=== PATIENT | female | born 1945 | race Caucasian/White ===

== ENCOUNTER → 2020-05-02 09:30 | Outpatient (BNVA) | payer MEDICARE, SELFPAY | PROVIDERS: Family Provider Family Medicine; PCP Family Medicine; Visit Provider Orthopaedic Surgery | DX: M25.551 Pain in right hip (principal); Z96.641 Presence of right artificial hip joint | CPT/HCPCS: 73502 ==

== ENCOUNTER 2020-06-12 09:17 | Outpatient (CLI) | payer MEDICARE, SELFPAY ==
--- NOTE | 2020-06-12 09:23 | MM_ITS ---
WS: [id number] BILATERAL DIGITAL SCREENING MAMMOGRAPHY WITH CAD CLINICAL INFORMATION: SCREENING HISTORY: Screening mammogram. No current complaints. COMPARISON: TECHNIQUE: Bilateral CC and MLO views. FINDINGS: The breasts are composed of heterogeneous fibroglandular density tissue, which can limit the detectio n of small underlying mass lesions. No suspicious mass, asymmetry, calcifications, or architectural d istortion. No evidence of malignancy. A few punctate calcifications. MM/[id number] IMPRESSION: BI-RADS: 2-Benign FOLLOW UP: 1 Year Follow-up Recommend return to annual screening mammography.
== END 2020-06-12 09:18 | disposition home or self-care (01) ==
LOC: RADSHAW 09:21
PROVIDERS: PCP Family Medicine; Visit Provider Family Medicine
DX: Z12.31 Encounter for screening mammogram for malignant neoplasm of breast (principal)
CPT/HCPCS: 77067

== ENCOUNTER → 2020-08-23 15:27 | Outpatient (BNVA) | payer MEDICARE, SELFPAY | PROVIDERS: PCP Family Medicine; Visit Provider Specialist | DX: G40.109 Localization-related (focal) (partial) symptomatic epilepsy and epileptic syndromes with simple partial seizures, not intractable, without status epilepticus (principal); D32.0 Benign neoplasm of cerebral meninges | CPT/HCPCS: 99213 ==

== ENCOUNTER → 2020-12-04 11:36 | Outpatient (BNVA) | payer MEDICARE, SELFPAY | PROVIDERS: PCP Family Medicine; Visit Provider Surgery | DX: Z01.812 Encounter for preprocedural laboratory examination (principal); Z20.822 Contact with and (suspected) exposure to COVID-19 | CPT/HCPCS: 87635 ==

== ENCOUNTER 2021-06-07 08:45 | Outpatient (CLI) | payer MEDICARE, SELFPAY ==
--- NOTE | 2021-06-07 09:30 | MR_ITS ---
WS: [id number] MRI HEAD WITHOUT CONTRAST TECHNIQUE: Sagittal T1, T2 axial, T2 axial FLAIR, axial and coronal T1 images, axial susceptibility w eighted imaging, axial diffusion weighted images, and coronal T2 images were obtained. CLINICAL INFORMATION: BENIGN NEOPLASM OF MENINGES UNSPEC COMPARISON: MRI 7 16,018 and 6 15,017 FINDINGS: No evidence of restricted diffusion to suggest acute ischemia. Ventricular system and basal cisterns are patent. Prior postoperative changes left parietal craniotomy with resection cavity in the parasag ittal left parietal lobe. Associated encephalomalacia and gliosis. No evidence of increasing edema or mass effect. No evidence of recurrence or progressive disease. Small amount of hemosiderin in the re section cavity unchanged. Normal optic chiasm and pituitary infundibulum. Temporal lobes and hippocampal formations are normal in appearance. Normal cavernous sinuses and Meckel's cave. MR/MR head wo con* [id number] IMPRESSION: 1. Stable postoperative changes left parietal craniotomy with resection cavity . 2. Stable surrounding encephalomalacia and gliosis about the resection cavity. No evidence of new or progressed disease. 3. Minimal small vessel changes with mild parenchymal volume loss. 4. No other significant changes compared to previous.
== END 2021-06-07 08:46 | disposition home or self-care (01) ==
LOC: RADSHAW 08:46
PROVIDERS: PCP Family Medicine; Visit Provider Family Medicine
DX: D32.9 Benign neoplasm of meninges, unspecified (principal); G93.89 Other specified disorders of brain
CPT/HCPCS: 70551

== ENCOUNTER → 2021-11-12 09:17 | Outpatient (BNVA) | payer MEDICARE, SELFPAY | PROVIDERS: PCP Family Medicine; Visit Provider Specialist | DX: G40.109 Localization-related (focal) (partial) symptomatic epilepsy and epileptic syndromes with simple partial seizures, not intractable, without status epilepticus (principal) | CPT/HCPCS: 99213 ==

== ENCOUNTER 2022-01-04 09:28 | Outpatient (CLI) | payer MEDICARE, SELFPAY ==
--- NOTE | 2022-01-04 09:49 | MM_ITS ---
WS: [id number] BILATERAL SCREENING TOMOSYNTHESIS DIGITAL MAMMOGRAM WITH CAD HISTORY: SCREENING COMPARISON: 06/12/2020 and 03/16/2018 Bilateral CC and MLO views submitted. Computer aided detection analyzed. Breast composition: The breasts are heterogeneously dense, which may obscure small masses. No suspici ous masses, microcalcifications or architectural distortion. MM/[place] [id number] IMPRESSION: BI-RADS: 1-Negative FOLLOW UP: 1 Year Follow-up
== END 2022-01-04 09:29 | disposition home or self-care (01) ==
LOC: RAD 09:29
PROVIDERS: PCP Family Medicine; Visit Provider Family Medicine
DX: Z12.11 Encounter for screening for malignant neoplasm of colon (principal)
CPT/HCPCS: 77063; 77067

== ENCOUNTER 2022-01-04 09:29 | Outpatient (CLI) | payer MEDICARE, SELFPAY ==
--- NOTE | 2022-01-04 09:55 | XR_ITS ---
WS: [id number] SCREENING DEXA SCAN [facility] CLINICAL INFORMATION: AGE-RELATED OSTEOPOROSIS WITHOUT CURRENT PATHOLOGICAL FRACTU COMPARISON: 2019 FINDINGS: The L1-L4 bone mineral density measures 1.020 g/cm2. This corresponds to a T score score of -1.3 and Z score of 0.4. Left femoral neck bone mineral density measures 0.793 (g/cm2). This corresponds to a T score of -1.7 (no units) and Z score of 0.1 (no units). XR/XR DEXA axial skeleton* [id number] IMPRESSION: Osteopenia lumbar spine. Osteopenia LEFT femoral neck. Patient's FRAX calculated 10 year probability for major osteoporotic fracture i s 15.3 % and osteoporotic hip fracture is 4.5%.
== END 2022-01-04 09:30 | disposition home or self-care (01) ==
LOC: RAD 09:29
PROVIDERS: PCP Family Medicine; Visit Provider Family Medicine
DX: M81.0 Age-related osteoporosis without current pathological fracture (principal)
CPT/HCPCS: 77080

== ENCOUNTER → 2022-05-15 08:39 | Outpatient (BNVA) | payer MEDICARE, SELFPAY | PROVIDERS: PCP Family Medicine; Visit Provider Specialist | DX: G40.109 Localization-related (focal) (partial) symptomatic epilepsy and epileptic syndromes with simple partial seizures, not intractable, without status epilepticus (principal); D32.0 Benign neoplasm of cerebral meninges; M79.7 Fibromyalgia; M46.1 Sacroiliitis, not elsewhere classified; Z98.890 Other specified postprocedural states | CPT/HCPCS: 20552; 64450; 99214; J1030; J3490 ==

== ENCOUNTER 2023-01-10 08:46 | Outpatient (CLI) | payer MEDICARE, SELFPAY ==
--- NOTE | 2023-01-10 08:57 | MM_ITS ---
WS: [id number] Bilateral screening 3D tomosynthesis digital mammogram, 01/10/2023 Clinical Data: SCREENING Comparison: 01/04/2022, 06/12/2020, 03/16/2018, 02/13/2017, 12/19/2015, 12/06/2014, 09/15/2013, 06/21/2012, 1 , 05/25/2010, 08/10/2007 Findings: The breast parenchymal pattern shows heterogeneous density. No spiculated masses or clustered calcifi cations are seen. There are no secondary signs of carcinoma. There are mole markers on both breasts. MM/[place] [id number] Impression: 1. Negative bilateral mammogram unchanged. 2. Recommend annual screening mammograms. BIRADS: 1-Negative FOLLOW UP: 1 Year Follow-up The CAD checker cashier was used.
== END 2023-01-10 08:47 | disposition home or self-care (01) ==
PROVIDERS: PCP Family Medicine; Visit Provider Family Medicine
DX: Z12.31 Encounter for screening mammogram for malignant neoplasm of breast (principal)
CPT/HCPCS: 77063; 77067

== ENCOUNTER → 2023-05-14 08:49 | Outpatient (BNVA) | payer MEDICARE, SELFPAY | PROVIDERS: PCP Family Medicine; Visit Provider Specialist | DX: G40.109 Localization-related (focal) (partial) symptomatic epilepsy and epileptic syndromes with simple partial seizures, not intractable, without status epilepticus (principal) | CPT/HCPCS: 99213 ==

== ENCOUNTER 2023-06-17 17:04 | Emergency (ER) | payer MEDICARE, SELFPAY ==
[2023-06-17 17:10] VITALS: BP 178/101; PULSE 92; RESP 17; TEMP 36.7; O2SAT 95; BMI 26.2
[2023-06-17 19:00] VITALS: PULSE 87; RESP 16; O2SAT 98
[2023-06-17 19:02] LABS: Basophils # 0.1 10^3/uL (0.0-0.1); Basophils % 0.7 %; Eosinophils # 0.1 10^3/uL (0.0-0.8); Eosinophils % 0.7 %; Hematocrit 41.7 % (36-47); Lymphocytes # 2.5 10^3/uL (0.8-4.8); Lymphocytes % 35.1 %; Mean Corpuscular HGB Conc 33.6 g/dL (30-55); Mean Corpuscular Hemoglobin 32.3 pg (27-33); Mean Corpuscular Volume 96.3 fl (85-98); Mean Platelet Volume 11.5 fL (7.4-10.4); Monocytes # 0.5 10^3/uL (0.2-0.9); Monocytes % 6.5 %; Neutrophils # 3.99 10^3/uL (1.8-7.7); Neutrophils % 56.6 %; Nucleated Red Blood Cells % 0 %; Platelet Count 252 10^3/cmm (157-399); Red Blood Count 4.33 10^6/uL (3.85-5.65); Red Cell Distribution Width 12.9 % (12.1-15.1); White Blood Count 7.06 10^3/uL (3.29-11.43)
--- NOTE | 2023-06-17 19:13 | W.ED.EXTPRO ---
HPI - Extremity Problem General: Chief complaint: Extremity Problem,Nontraumatic Stated complaint: n/v, left shoulder pain Time Seen by Provider: 06/17/23 19:03 History of Present Illness: 78-year-old female comes in today for complaints of right shoulder pain and nausea and vomiting for 2 days. Patient appears nontoxic. Patient does endorse increased use of ibuprofen for her shoulder pain. Patient reports no blood in vomitus. Patient reports no fever. Patient had prior surgery with removal of her gallbladder and hysterectomy. 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 Review of patient's medications notes that she is on medicine for hypercholesterolemia, osteoporosis, depression, seasonal nasal allergies, seizure medication, anxiety, GERD, restless legs, and beta-larissa. Review of Systems General: Reports: 10 or more systems reviewed and unremarkable except in HPI and below GI: Reports: nausea and vomiting Musc: Reports: joint pain (Right shoulder) PFSH ED PFSH: Family History Daughter Cancer Father CAD (coronary artery disease) Mother Hyperlipidemia Social History Smoking and tobacco/nicotine status: never used tobacco/nicotine Physical Exam Const: COMMON NORMALS: alert HENMT: COMMON NORMALS: normocephalic HEAD & SCALP: normocephalic Neck/C-Spine: COMMON NORMALS: full ROM and no meningeal signs CERVICAL SPINE: No Cervical spine tenderness Resp: COMMON NORMALS: normal respiratory effort and clear to auscultation bilaterally AUSCULTATION: clear to auscultation bilaterally Cardio: COMMON NORMALS: regular rate and regular rhythm RATE: regular rate RHYTHM: regular rhythm GI: COMMON NORMALS: Soft to palpation and non-tender PALPATION: Yes Soft to palpation : COMMON NORMALS: Yes no CVA tenderness BLADDER/KIDNEY EXAM: Yes no CVA tenderness Back/Pelvis: COMMON NORMALS: no CVA tenderness and thoracic and lumbar spine normal to inspection Extremity: COMMON NORMALS: no pedal edema NARRATIVE EXTREMITY EXAM: Lower leg brace for dropfoot right lower extremity Neuro: SENSORIUM/ORIENTATION: Yes alert MENINGEAL SIGNS: Yes no meningeal signs Skin: COMMON NORMALS: turgor normal GENERAL SKIN EXAM: turgor normal Course Vital Signs: Vital signs: Vital Signs Temperature 98.1 F 06/17/23 17:10 Pulse Rate 87 06/17/23 19:00 Respiratory Rate 18 06/17/23 20:00 Blood Pressure 178/101 06/17/23 17:10 Pulse Oximetry 93 06/17/23 20:00 Oxygen Delivery Me thod Room Air 06/17/23 17:10 MDM - Extremity (Nontraumatic) Medical Decision Making 78-year-old female comes in today for complaints of right shoulder pain. Patient reports nausea and vomiting also for the last 2 days. Patient reports shoulder pain has been going on for almost 1 year. Patient has also been having episodes of nausea and vomiting in the past. On exam abdomen soft nontender. Vital signs are normal except for some elevated blood pressure. Heart rates regular. Differential diagnosis includEs but not limited to musculoskeletal pain, arthritis, gastritis, GERD, pancreatitis, malingering. X-ray of the shoulder shows some arthritic changes. X-ray of the abdomen had no acute findings. Laboratory values were unremarkable. I believe the patient probably has some tendinitis versus arthritis to the right shoulder which she will need to have further evaluation with transfer specialist. Patient does admit to using increased NSAIDs and has probably caused some gastritis to his stomach. I recommended avoiding ibuprofen and naproxen [id number] and doing a trial of celecoxib for her arthritis and inflammation pain. Patient reported understanding of care plan and need for follow-up or return to the ER for worsening symptoms. Case management was requested to assist with follow-up appointment Lab Data 06/17/23 18:55 06/17/23 18:55 Radiology Impressions KUB X-Ray 06/17/23 19:31 IMPRESSION: No acute findings. COMMENTS: For patients with an IVC filter, recommend assessment for a management plan for the patient's IVC filter. If there is no established management plan, recommend referral to an interventional clinician on a nonemergent basis for evaluation. Laboratory Results WBC 7.06 10^3/uL (3.29-11.43) 06/17/23 18:55 RBC 4.33 10^6/uL (3.85-5.65) 06/17/23 18:55 Hgb 14.00 g/dL (11.27-16.99) 06/17/23 18:55 Hct 41.7 % (36-47) 06/17/23 18:55 MCV 96.3 fl (85-98) 06/17/23 18:55 MCH 32.3 pg (27-33) 06/17/23 18:55 MCHC 33.6 g/dL (30-55) 06/17/23 18:55 RDW 12.9 % (12.1-15.1) 06/17/23 18:55 Plt Count 252 10^3/cmm (157-399) 06/17/23 18:55 MPV 11.5 fL (7.4-10.4) H 06/17/23 18:55 Neut % (Auto) 56.6 % 06/17/23 18:55 Lymph % (Auto) 35.1 % 06/17/23 18:55 Zavala % (Auto) 6.5 % 06/17/23 18:55 Eos % (Auto) 0.7 % 06/17/23 18:55 Baso % (Auto) 0.7 % 06/17/23 18:55 Neut # (Auto) 3.99 10^3/uL (1.8-7.7) 06/17/23 18:55 Lymph # (Auto) 2.5 10^3/uL (0.8-4.8) 06/17/23 18:55 Zavala # (Auto) 0.5 10^3/uL (0.2-0.9) 06/17/23 18:55 Eos # (Auto) 0.1 10^3/uL (0.0-0.8) 06/17/23 18:55 Baso # (Auto) 0.1 10^3/uL (0.0-0.1) 06/17/23 18:55 Nucleated RBC % (auto) 0 % 06/17/23 18:55 Nucleated RBCs # 0.0 /100WBC 06/17/23 18:55 Sodium 141 mmol/L (136-145) 06/17/23 18:55 Potassium 4.1 mmol/L (3.5-5.1) 06/17/23 18:55 Chloride 100 mmol/L (98-107) 06/17/23 18:55 Carbon Dioxide 28 mmol/L (22-29) 06/17/23 18:55 Anion Gap 17.1 (5-19) 06/17/23 18:55 BUN 17 mg/dL (8-23) 06/17/23 18:55 Creatinine 0.9 mg/dL (0.5-0.9) 06/17/23 18:55 GFR Calculation Not Reportable 06/17/23 18:55 Glucose 106 mg/dL (65-115) 06/17/23 18:55 Calculated Osmolality 294 mOsm/kg (285-295) 06/17/23 18:55 Calcium 10.2 mg/dL (8.5-10.5) 06/17/23 18:55 Total Bilirubin 0.4 mg/dL (0.15-1.2) 06/17/23 18:55 AST 37 U/L (0-32) H 06/17/23 18:55 ALT 41 U/L (0-33) H 06/17/23 18:55 Alkaline Phosphatase 102 U/L (35-105) 06/17/23 18:55 Total Protein 8.1 g/dL (6.6-8.7) 06/17/23 18:55 Albumin 5.0 g/dL (3.5-5.2) 06/17/23 18:55 Globulin 3.1 g/dL (1.3-4.6) 06/17/23 18:55 Lipase 23 U/L (13-60) 06/17/23 18:55 Urine Color Yellow (Yellow) 06/16/23 19:24 Urine Appearance Cloudy (CLEAR) A 06/16/23 19:24 Urine pH 8 (5-7) H 06/16/23 19:24 Ur Specific [place] 1.015 (1.005-1.030) 06/16/23 19:24 Urine Protein Trace (Negative) 06/16/23 19:24 Urine Glucose (UA) Norm (Normal) 06/16/23 19:24 Urine Ketones 2+ (Negative) H 06/16/23 19:24 Urine Blood Neg (Negative) 06/16/23 19:24 Urine Nitrate Negative (Negative) 06/16/23 19:24 Urine Bilirubin Neg (Negative) 06/16/23 19:24 Prot Sulfosalicylic Acd Positive (Negative) 06/16/23 19:24 Urine Urobilinogen Norm mg/dL (Negative) 06/16/23 19:24 Ur Leukocyte Esterase 1+ (Negative) H 06/16/23 19:24 Urine RBC 0-4 /hpf (0-2) H 06/16/23 19:24 Urine WBC 10-15 /hpf (0-5) H 06/16/23 19:24 Ur Squamous Epith Cells 0-4 /hpf (0-5) H 06/16/23 19:24 Amorphous Sediment 1+ /hpf 06/16/23 19:24 Urine Bacteria Trace /hpf (NONE) 06/16/23 19:24 Hyaline Casts 0-4 /lpf H 06/16/23 19:24 Urine Mucus None /hpf 06/16/23 19:24 XR interpretation done by ED provider, pending radiology final review Discharge Plan Discharge Patient Disposition: Home Clinical Impression: Tendinitis of right shoulder, Gastritis due to nonsteroidal anti-inflammatory drug (NSAID) Condition: Stable Prescriptions: New prednisone 20 mg tablet 20 mg PO DAILY Qty: 5 0RF celecoxib 200 mg capsule 200 mg PO BID Qty: 20 0RF No Action propranolol 10 mg tablet 10 mg PO BID lorazepam 0.5 mg tablet 0.5 mg PO DAILY atorvastatin 20 mg tablet 20 mg PO DAILY escitalopram oxalate 5 mg tablet 5 mg PO DAILY omeprazole 20 mg capsule,delayed release(DR/EC) 20 mg PO DAILY fluticasone propionate 50 mcg/actuation spray,suspension 2 spray intranasal DAILY Rx Instructions: administer into each nostril ropinirole 0.25 mg tablet 0.5 mg PO DAILY alendronate [Fosamax] 70 mg tablet 70 mg PO .weekly oxycodone 5 mg capsule 5 mg PO Q6H PRN hydrocodone-acetaminophen 10-325 mg tablet 1 tab PO Q6H PRN lamotrigine 200 mg tablet See Rx Instructions .ROUTE .COMPLEX Qty: 90 3RF Dose Instruction: TAKE 1 TABLET TWICE A DAY Rx Instructions: TAKE 1/2 TABLET TWICE A DAY levetiracetam 1,000 mg tablet See Rx Instructions .ROUTE .COMPLEX Qty: 180 3RF Dose Instruction: TAKE 1 TABLET TWICE A DAY Rx Instructions: TAKE 1 TABLET TWICE A DAY Discharge Orders: Discharge ED (Routine); Ordered 06/17/23 Ordered By: Danie Cardona Referrals: Carla Bruno MD [Primary Care Provider] - Patient Instructions: Shoulder Pain (ED) Activity Restrictions/Additional Instructions: Home and rest. Gentle activity with the shoulder. Use ice or heat for comfort. Use acetaminophen and celecoxib for pain. Use your narcotic pain medicine for severe pain. Case management will contact you regarding follow-up appointment with orthopedics office. Return to ED for worsening symptoms such as high fever, severe chest pain, or shortness of breath. Coding Level of Care Code ED Applications Consultant for Destini Jimenez
[2023-06-17 19:21] LABS: Alanine Aminotransferase 41 U/L (0-33); Alkaline Phosphatase 102 U/L (35-105); Anion Gap 17.1 (5-19); Aspartate Amino Transferase 37 U/L (0-32); Blood Urea Nitrogen 17 mg/dL (8-23); Calcium 10.2 mg/dL (8.5-10.5); Carbon Dioxide 28 mmol/L (22-29); Chloride 100 mmol/L (98-107); Globulin 3.1 g/dL (1.3-4.6); Glucose 106 mg/dL (65-115); Lipase 23 U/L (13-60); Osmolality Calculated 294 mOsm/kg (285-295); Potassium 4.1 mmol/L (3.5-5.1); Sodium 141 mmol/L (136-145); Total Bilirubin 0.4 mg/dL (0.15-1.2); Total Protein 8.1 g/dL (6.6-8.7)
--- NOTE | 2023-06-17 19:31 | XRR_ITS ---
PROCEDURE INFORMATION: Exam: XR Abdomen Exam date and time: 06/17/2023 8:04 PM Age: 78 years old Clinical indication: Nausea and vomiting; Additional info: N/v TECHNIQUE: Imaging protocol: Radiologic exam of the abdomen. Views: Frontal supine view of the abdomen. 1 View. COMPARISON: CR XR hip RT 2-3V wo/w pel* [id number] 05/02/2020 9:38 AM FINDINGS: Gastrointestinal tract: No air-filled dilated bowel loops or evidence of bowel thickening. Intraperitoneal space: Right upper abdomen surgical clips. No supine evidence of free air. Vasculature: IVC filter. Mild arterial calcifications. Bones/joints: Mild degenerative changes along the spine. Partially visualized right hip arthroplasty. XR/XR KUB [id number] IMPRESSION: No acute findings. COMMENTS: For patients with an IVC filter, recommend assessment for a management plan for the patient's IVC filter. If there is no established management plan, recommend referral to an interventional clinician on a nonemergent basis for evaluation.
[2023-06-17] MEDS: ondansetron 2 mg/ML SDV 2 mL 4 MG IVP (19:46)
[2023-06-17 19:50] VITALS: RESP 16; O2SAT 96
[2023-06-17 19:50] LABS: Bilirubin Urine Neg (Negative); Blood Urine Neg (Negative); Glucose Urine UA Norm (Normal); Ketones Urine 2+ (Negative); Nitrate Urine Negative (Negative); Protein Urine Trace (Negative); Specific Gravity, Urine 1.015 (1.005-1.030); Urine Appearance Cloudy (CLEAR); Urine Color Yellow (Yellow); pH Urine 8 (5-7)
[2023-06-17] MEDS: morphine 4 mg/mL SDV 1 mL 2 MG IVP (19:50)
[2023-06-17] MEDS: sodium chloride 0.9% 250 ML IV (19:50)
[2023-06-17 19:51] LABS: Add Urine Microscopic? YES; Leukocyte Esterase Urine 1+ (Negative); Urobilinogen Urine Norm (Negative)
[2023-06-17 19:53] LABS: Sulfosalicylic Acid Urine Positive (Negative)
[2023-06-17 20:00] VITALS: RESP 18; O2SAT 93
[2023-06-17 20:00] LABS: Amorphous Sediment Urine 1+ /hpf; Bacteria Urine TRACE /hpf; Hyaline Casts Urine 0-4 /lpf; RBC Urine 0-4 /hpf (0-2); Squamous Epithelial Cell Urine 0-4 /hpf (0-5)
[2023-06-17 20:01] LABS: Add Urine Culture? No
--- NOTE | 2023-06-17 20:50 | XRR_ITS ---
PROCEDURE INFORMATION: Exam: XR Right Shoulder Exam date and time: 06/17/2023 8:58 PM Age: 78 years old Clinical indication: Pain; Shoulder; Right TECHNIQUE: Imaging protocol: Radiologic exam of the right shoulder. Views: 2 or more views. COMPARISON: CR XR chest 2V* [id number] 05/14/2019 10:50 AM FINDINGS: Bones/joints: No acute fracture or dislocation. Joint spacing and alignment are maintained. Mild acromioclavicular joint arthropathy. Degenerative changes along the spine. Soft tissues: Unremarkable. XR/XR shoulder RT min 2V* [id number] IMPRESSION: No acute findings.
[2023-06-17] MEDS: dexamethasone 10 mg/mL INJ IVP (21:16)
[2023-06-17 21:26] VITALS: BP 167/97; PULSE 98; RESP 18
--- NOTE | 2023-06-18 08:27 | DCPLANNER ---
Message and task sent to ortho 06/18/23 0814 JUAN MANUEL
== END 2023-06-17 21:28 | disposition home or self-care (01) ==
PROVIDERS: Emergency Medicine; Emergency Provider Nurse Practitioner Family; PCP Family Medicine
DX: M77.8 Other enthesopathies, not elsewhere classified (principal); K29.70 Gastritis, unspecified, without bleeding; T39.395A Adverse effect of other nonsteroidal anti-inflammatory drugs [NSAID], initial encounter; X58.XXXA Exposure to other specified factors, initial encounter
CPT/HCPCS: 36415; 73030; 74018; 80053; 81001; 83690; 85025; 96361; 96374; 96375; 99284; J1100; J2270; J2405; J7050

== ENCOUNTER → 2023-07-11 07:50 | Outpatient (BNVA) | payer MEDICARE, SELFPAY | PROVIDERS: PCP Family Medicine; Referring Provider Nurse Practitioner Family; Visit Provider Physician Assistant | DX: M75.41 Impingement syndrome of right shoulder | CPT/HCPCS: 20610; 73030; 99203; J3301 ==

== ENCOUNTER 2023-08-15 07:04 | Outpatient (CLI) | payer MEDICARE, SELFPAY ==
--- NOTE | 2023-08-15 07:15 | MR_ITS ---
WS: [id number] MRI RIGHT SHOULDER NONCONTRAST TECHNIQUE: Sagittal T2, coronal T1, T2 and proton density imaging. Axial gradient PDE imaging. CLINICAL INFORMATION: shoulder pain COMPARISON: None. FINDINGS: Moderate to advanced degenerative arthritis AC joint with fluid and edema. Synovial thickening. Mild downsloping acromion with subacromial spurring. Impingement distal supraspinatus. High-grade full-thi ckness tear supraspinatus deep to the acromion with interposed fluid signal. Tendon retraction measur ing approximately 7.5 mm. Chronic thinning of the supraspinatus with tendinopathy. Chronic thinning of the infraspinatus with tendinopathy. Normal teres minor. Marked chronic thinning of the subscapularis with tendinopathy. Chronic intrasubstance tear distal subscapularis tendon which remains intact. Biceps tendon intact within the bicipital groove. Subchondral cystic change involvin g the humeral head. Moderate to advanced degenerative arthritis glenohumeral articulation. Glenoid la dewayne appears grossly intact. Intra-articular biceps tendon appears intact. IMPRESSION: 1. Advanced degenerative arthritis AC joint. 2. Full-thickness tear supraspinatus deep to the acromion with 7.5 mm of tendon retraction. Associat ed tendinopathy supraspinatus. 3. Tendinopathy infraspinatus. 4. Chronic thinning of the subscapularis with tendinopathy and chronic appearing intrasubstance tear distally. 5. Biceps tendon appears intact within the bicipital groove. 6. Subacromial and subdeltoid fluid.
== END 2023-08-15 07:05 | disposition home or self-care (01) ==
LOC: RAD 07:05
PROVIDERS: PCP Family Medicine; Visit Provider Physician Assistant
DX: M75.41 Impingement syndrome of right shoulder (principal); M19.011 Primary osteoarthritis, right shoulder; M75.121 Complete rotator cuff tear or rupture of right shoulder, not specified as traumatic; M75.81 Other shoulder lesions, right shoulder
CPT/HCPCS: 73221

== ENCOUNTER → 2023-09-05 09:30 | Outpatient (BNVA) | payer MEDICARE, SELFPAY | PROVIDERS: PCP Family Medicine; Visit Provider Physician Assistant | DX: M75.41 Impingement syndrome of right shoulder; M75.51 Bursitis of right shoulder; M75.101 Unspecified rotator cuff tear or rupture of right shoulder, not specified as traumatic | CPT/HCPCS: 99214 ==

== ENCOUNTER 2023-10-09 08:08 | Day surgery (SDC) | payer MEDICARE, SELFPAY ==
[2023-10-09] VITALS (18 sets, daily range): BP systolic 102–183; BP diastolic 64–147; PULSE 65–88; RESP 16–25; TEMP 35.6–36.7; O2SAT 93–100; BMI 25.4
--- NOTE | 2023-10-09 09:08 | P.HP_ITS ---
Same Day Surgery H&P Indication for Procedure/HPI DATE OF PROCEDURE: October 09, 2023 CHIEF COMPLAINT/INDICATIONFOR SURGICAL PROCEDURE: Right shoulder rotator cuff tear, AC joint arthritis subacromial impingement biceps tendinitis PREOP DIAGNOSIS: Right shoulder rotator cuff tear, AC joint arthritis, subacromial impingeme PLANNED PROCEDURE: Operation Date: 10/09/23 09:55 Proposed Procedures p Right Shoulder Arthroscopy(Right) - Gennaro [place], DO s Right AC Joint Resection(Right) - Gennaro Ирина, DO s Rotator Cuff Repair - Arthroscopy possible balloon(Right) - Gennaro Ирина, DO s Right Bicep Tenotomy(Right) - Gennaro [place], DO s Right Subacromial Decompression(Right) - Gennaro Ирина, DO Medications/Allergies* Home Medications Medication Instructions Recorded Confirmed Type alendronate 70 mg tablet (Fosamax) 70 mg PO .weekly 08/23/20 10/08/23 History atorvastatin 20 mg tablet 20 mg PO DAILY 08/23/20 10/08/23 History escitalopram oxalate 5 mg tablet 5 mg PO DAILY 08/23/20 10/08/23 History (Lexapro) fluticasone propionate 50 2 spray intranasal DAILY 08/23/20 10/08/23 History mcg/actuation nasal spray,suspension lorazepam 0.5 mg tablet 0.5 mg PO DAILY 08/23/20 10/08/23 History omeprazole 20 mg capsule,delayed 20 mg PO DAILY 08/23/20 10/08/23 History release propranolol 10 mg tablet 10 mg PO BID 08/23/20 10/08/23 History ropinirole 0.25 mg tablet 0.5 mg PO DAILY 08/23/20 10/08/23 History lamotrigine 200 mg tablet 100 mg PO BID 10/08/23 10/08/23 History levetiracetam 1,000 mg tablet 1,000 mg PO BID 10/08/23 10/08/23 History Allergies/Adverse Reactions Allergy/AdvReac Type Severity Reaction Status Date / Time divalproex sodium Allergy Unknown Verified 10/08/23 10:54 [From Depakote] doxycycline Allergy Unknown Verified 10/08/23 10:54 heparin Allergy Unknown Verified 10/08/23 10:54 Pertinent History/Comorbid Conditions* Family History (Updated 08/23/20 @ 15:49 by Nona Thorne RN) CAD (coronary artery disease) Father Hyperlipidemia Mother Cancer Daughter Social History Smoking and tobacco/nicotine status: never used tobacco/nicotine Alcohol intake: never Pertinent Exam Findings alert, oriented x 3, operative site marked and procedure specific exam findings Right Shoulder -Tender to palpation over ac joint and bicep tendon -Decreased shoulder range of motion Recommendations Surgery/Procedure today Other Plans: Plan to proceed to the OR today with right shoulder diagnostic and surgical arthroscopy with AC joint resection, subacromial decompression, rotator cuff repair, possible subacromial balloon, biceps tenotomy versus tenodesis. Patient and daughter understand agree with current plan. All questions answered. They understand the ins and outs procedure risk benefits complication alternatives with surgery elects proceed all questions answered. Coding Level of Care Code Acute Code for Destini Jimenez
[2023-10-09] MEDS: acetaminophen 1,000 MG/100 ML PIGGYBACK 400 MG IV (09:13)
[2023-10-09] MEDS: sodium chloride 0.9% 1,000 ML 30 ML IV (09:14)
[2023-10-09] MEDS: ketorolac 30 mg/mL INJ IVP (09:14)
[2023-10-09] MEDS: ceFAZolin 2,000 MG in sodium chloride 0.9% (plus) 50 ML 100 MG IV (09:34)
--- NOTE | 2023-10-09 09:58 | ANES.PROC ---
Anesthesia Procedures Procedure/Date: 10/09/23 right interscalene nerve block Procedure Narrative: Patient in OR and right neck prepped with chlorhexidine. Ultrasound used to identify nerve and 22g 2 in needle used to place 30 ml 0.5% ropivicaine in 10 ml aliquots with patient awake. No complaints of parasthesia from patient and she tolerated procedure well. Nerve Block ^: Nerve Block 1: Main Anesthesia: general anesthesia Consent: from patient Nerve block location: interscalene Anesthesia monitors applied: pulse oximetry and EKG Nerve block position: semi sitting Anesthetic Used: ropivicaine 0.5% Amount of anesthesia used (mL): 30 Ultrasound used to: in supraclavicular region and visualize and ID interscalene groove Nerve Stimulator Used?: No Injection: neg aspiration of heme Patient Tolerated Procedure: well and no complications Complications: none
--- NOTE | 2023-10-09 11:55 | W.PM.BPON ---
Date of Procedure: 10/09/2023 Surgeon: Gennaro Gifford DO [employer] Supervisor(s): HAROON Mad[place] Procedure(s) performed: Right shoulder diagnostic and surgical arthroscopy with biceps tenotomy Right shoulder diagnostic and surgical arthroscopy with labral debridement Right shoulder diagnostic and surgical arthroscopy with subscapularis tendon repair Right shoulder diagnostic and surgical arthroscopy with subacromial decompression (bursectomy and acromioplasty) Right shoulder diagnostic and surgical arthroscopy with acromioclavicular joint resection Right shoulder diagnostic and surgical arthroscopy with large rotator cuff (supraspinatus tendon) repair Findings of the procedure(s): Patient was found to have a upper border subscapularis tendon tear as well as significant biceps inflammation unstable biceps anchor, as well as a large supraspinatus rotator cuff tendon repair with tendon retraction. Patient underwent procedure as planned without complications or issues this point in time she is placed in a UltraSling and will follow-up in 2 weeks. Keep nonweightbearing to the right upper extremity. Estimated blood loss: 20 mL Specimen(s) removed: None Post-operative diagnosis: Right shoulder biceps tendinitis/tearing, labral tearing, subscapularis tendon tear, subacromial impingement, AC joint arthritis, large supraspinatus rotator cuff tendon tear
--- NOTE | 2023-10-09 11:59 | PM.OP ---
Operative Report Date of procedure: October 09, 2023 Surgeon: Gennaro Gifford DO Commutator Repairer: HAROON [place]?FA was necessary for assistance in this case with arm positioning to execute the procedure, retraction assist with instrumentation and rotator cuff fixation with implants, as well as to assist with wound closure and dressing application. Procedure: Preoperative diagnosis: right shoulder rotator cuff tear, AC joint arthritis, subacromial impingement, biceps tendinitis Post-op diagnosis:? Right?shoulder?labral tear Right?shoulder?biceps tendon tear Right shoulder upper border subscapularis tendon tear Right?shoulder?rotator cuff tear Right?shoulder?AC joint arthritis Right?shoulder?subacromial bursitis/impingement Procedure done: Right?shoulder?diagnostic and surgical arthroscopy with arthroscopic rotator cuff repair(large) Right?shoulder?diagnostic and surgical arthroscopy biceps tenotomy Right?shoulder?diagnostic and surgical arthroscopy labral debridement Right?shoulder?diagnostic and surgical arthroscopy acromioclavicular joint resection Right?shoulder?diagnostic and surgical arthroscopy subacromial decompression (acromioplasty and bursectomy) Right shoulder diagnostic and surgical arthroscopy with subscapularis tendon repair Surgeon: Gennaro Gifford DO Estimated blood loss: [20]mL IV fluids: See anesthesia record Implants: Arthrex 4.75 swivel lock x 2 Arthrex scorpion and suture tape Arthrex 2 x 2.6 mm fiber tacks RC Complications: None Condition: stable Disposition: same day Brief History: Patient been seen and worked up in the outpatient setting for Right?shoulder?pain.? Pt had an MRI which showed findings below.? Patient's failed conservative treatment and has weakness.? We talked about treatment options far as nonoperative and operative intervention..? We talked about risk benefits complication alternatives surgical nonsurgical treatment options.? Understanding risk of surgery pt agrees to proceed with surgical intervention.? All questions have been answered at this time.? Patient elects proceed with surgery and consent obtained in office. IMPRESSION: 1. Advanced degenerative arthritis AC joint. 2. Full-thickness tear supraspinatus deep to the acromion with 7.5 mm of tendon retraction. Associated tendinopathy supraspinatus. 3. Tendinopathy infraspinatus. 4. Chronic thinning of the subscapularis with tendinopathy and chronic appearing intrasubstance tear distally. 5. Biceps tendon appears intact within the bicipital groove. 6. Subacromial and subdeltoid fluid. Procedure: Patient seen evaluated in the preoperative holding area.? Consent reviewed and signed with patient.? Once again reviewed patient's MRI results as well as? planned surgical intervention.? Correct extremity marked.? Patient seen evaluated by anesthesia department received regional anesthesia.? Once ready for surgery was taken back to the operative suite.? Patient then subsequently underwent anesthesia per the anesthesia department was transported onto the OR table.? Patient was then placed into a lateral decubitus position with a beanbag and was appropriately secured to the bed.? All bony prominences well-padded.? Patient then had the Right upper extremity was then prepped and draped in standard orthopedic fashion.? Patient received appropriate preoperative antibiotics.? Final timeout performed. The Right upper extremity was then held in hanging from traction utilizing sterile technique.? Next started with standard diagnostic and surgical arthroscopy with posterior portal position introduced arthroscope into the glenohumeral joint.? Visualized the glenohumeral joint I then introduced a spinal needle within the rotator cuff interval to confirm appropriate anterior portal placement.? Once this was confirmed I then made my small incision and then introduced my arthroscopic shaver into the glenohumeral joint.? After thorough debridement was clearly evident patient had a significant erythema as well as positive liftoff sign of the biceps anchor and biceps tendon tear as it was pulled within the joint.? Decision at this time was made to perform a biceps tenotomy.? Introduced a thermal wand and a biceps tenotomy was performed to completion With appropriate release.? Next I evaluated the subscapularis tendon was found to be torn at the upper border. At this point time decision was made for a subscapularis tendon repair. At this point in time I appropriately debrided the tendon and opened up the rotator cuff interval with the thermal wand utilized blunt probe to mobilize adhesions around the subscapularis tendon so that way an appropriate bite of just the tendon would be made. Next once this was performed I then placed a purple cannula. Next I then utilized arthroscopic scopic suture scorpion to pass the fiber link suture to luggage tag upper border of the subscapularis tendon. Once this was then subsequently performed I then took 1 more purchase through the tendon for appropriate fixation and then once I satisfied with my purchase I then subsequently loaded this onto a 4.75 mm Arthrex bio composite swivel lock suture anchor. This was kept under appropriate tension I then subsequently utilized a punch to appropriate depth and then loaded under appropriate tension secured my repair with the swivel lock suture anchor. This was then stressed and found to have appropriate repair the subsequently utilized arthroscopic suture cutter and all excess suture was removed. This completed patient's subscapularis tendon repair. ?Next there was significant labral tearing at biceps anchor and circumferential.? ? I then subsequently utilized a a arthroscopic shaver and thermal wand to perform a labral debridement.? This point time I then visualized the glenohumeral joint.? The glenohumeral joint was found to have grade 2 chondromalacia throughout.? Infrapatellar pouch was free of loose bodies from viewing the posterior portal.? Next a visualized the rotator cuff superiorly and there was found to be a large tear supraspinatus tendon.? I utilized a spinal needle to maranda this location.? ?This completed my work within the glenohumeral joint all fluid was suctioned free of the joint.? ?Next I reintroduced the arthroscope posteriorly.? And went to the subacromial space.? I established my lateral working portal at the site of which my spinal needle was marking of the rotator cuff tear.? Thermal wand was then introduced laterally and then I subsequently performed extensive bursectomy of the subacromial space.? Patient had a large anterior bone spur.? At this point time I proceeded with my AC joint resection thermal wand was used and track to the anterior edge of the acromion and then tracked all the way to the AC joint.? Once identified the AC joint this was very arthritic in nature.? Thermal wand was placed anteriorly to establish appropriate plane for AC joint resection.? Once appropriate margins and anterior inferior and anterior capsule was released I then introduced arthroscopic shaver and a bur and performed AC joint resection of both the acromion to cope plane at the AC joint and a distal clavicle resection was then performed totaling 1 cm in size and was confirmed.? This completed my AC joint resection and I then introduced the arthroscopic shaver laterally while continuing to view posteriorly.? I then performed an acromioplasty to complete my subacromial decompression prior to fixing the rotator cuff tear.? Next the arthroscopic shaver was then used previous spinal needle spot that is marked the small hole in the rotator cuff this was consistent with a large full-thickness tear.? This point in time I thoroughly debrided the rotator cuff footprint with a ring curette as well as shaver. Once footprint was appropriately debrided I then debrided appropriately the rotator cuff tendon assessed its quality patient had good appropriate quality and thickness to her rotator cuff tendon that would have appropriate reduction and tendon excursion. As a result plan with a Arthrex double row speed bridge technique. I subsequently utilized to x 2.6 mm rotator cuff fiber tack sutures these were subsequently placed for my medial row anchors subsequently utilized arthroscopic scorpion to pass these in sequential fashion from anterior to posterior with a total of 6 passes through the tendon. Once this was then done I then subsequently pulled 1 suture type from each anchor to my for my anterior lateral row anchor as well as my posterior lateral row anchor. Once the sutures then subsequently pulled I then subsequently debrided the lateral row of soft tissue and had appropriate visualization and subsequently loaded these on Arthrex bio composite 4.75 swivel lock peek eyelet anchor with self punching. Once I had this under appropriate tension from anterior lateral row anchor I then subsequently punched the anchor into appropriate position while maintaining appropriate tension and then subsequently secured the anchor. All excess suture was then removed had excellent fixation. Next I loaded the posterior lateral row anchor sutures and then subsequently in the same fashion use the Arthrex 4.75 bio composite peek eyelet swivel lock which all suture was then loaded held under appropriate tension impacted and secured with an appropriate tension-free repair. All excess suture was then removed. Rotator cuff repair was completely closed and had excellent tendon excursion as well as compression of the rotator cuff footprint.? Repair was found to be satisfactory?shoulder?was taken through range of motion and the repair moved as a unit with no evidence of loss of fixation. ?I then switched the arthroscope to the lateral portal to confirm this tension-free repair.? I took the?shoulder?through range of motion and the rotator cuff repair was stable and moved as a unit. ?Next I then introduced the arthroscopic shaver posteriorly to complete my subacromial decompression appropriate complaining all the way up to the lateral edge of the acromion.? This completed the surgery.? All fluid was suctioned from the?shoulder.? All instruments were removed.? The lateral incision was then closed with nylon stitches.? As well as the portal sites closed with portal nylon stitches.? Xeroform 4 x 4's ABD and tape was then applied to the Right?shoulder?and was placed into a?shoulder?abduction pillow sling for rotator cuff repair.? Patient was then awakened from anesthesia and then taken back to PACU in stable condition.? Patient tolerated procedure without any issues. Disposition: Patient taken back in stable condition recovering well.? Dressings on in place clean dry and intact.? Will be nonweightbearing to the Right upper extremity.? Follow rotator cuff repair protocol.? Patient to follow-up with me in the office in 2 weeks.? Patient will receive appropriate discharge instruction as well as pain medication postoperatively.? All questions answered.? We will contact the office for any questions or concerns.
--- NOTE | 2023-10-09 12:29 | SUR.PHASEI ---
Simple mask removed, patient states no pain, no nausea. Warm blankets on patient, states she is warming up.
--- NOTE | 2023-10-09 12:54 | SUR.PHASEI ---
Patient stated she needs to pee, placed her on a bedpan.
[2023-10-09] MEDS: meperidine 50 mg/mL INJ 12.5 MG IVP ×2 (13:03→13:42)
--- NOTE | 2023-10-09 13:11 | SUR.PHASEI ---
Administered demerol for shaking patients O2 sat started dropped. Placed her on NC
--- NOTE | 2023-10-09 13:33 | SUR.PHASEII ---
ACTIVE HEATING IN PROGRESS. ROM AND SENSATION OF RIGHT HAND.
--- NOTE | 2023-10-09 14:07 | SUR.PHASEII ---
13:42 RE-MEDICATED FOR TREMORS.
--- NOTE | 2023-10-09 14:19 | ANE.PACU2 ---
Inpatient post-anesthesia follow up: Vital signs: Temperature 98.0 F Pulse Rate 88 Respiratory Rate 18 Blood Pressure 102/84 Pulse Oximetry 95 Oxygen Delivery Me thod Room Air Oxygen Flow Rate 2 Fraction of Inspir ed Oxygen Hydration adequate: Yes Nausea and vomiting: No Pain level: 1 Mental status: Baseline Additional Comments: no apparent anesthetic complications noted.
== END 2023-10-09 15:00 | disposition home or self-care (01) ==
PROVIDERS: PCP Family Medicine; Visit Provider Student in an Organized Health Care Education/Training Program
PROC: (CPT 29805; principal; 2023-10-09 09:45)
PROC: 0RSG0ZZ Reposition Right Acromioclavicular Joint, Open Approach (ICD-10-PCS; CPT 29826; 2023-10-09 09:45)
PROC: (CPT 29827; 2023-10-09 09:45)
PROC: (CPT 24310; 2023-10-09 09:45)
DX: M75.101 Unspecified rotator cuff tear or rupture of right shoulder, not specified as traumatic (principal); S46.111A Strain of muscle, fascia and tendon of long head of biceps, right arm, initial encounter; M13.811 Other specified arthritis, right shoulder; M25.811 Other specified joint disorders, right shoulder; X58.XXXA Exposure to other specified factors, initial encounter
CPT/HCPCS: 29826; 29827; 29828; C1713 ×2; J0131; J0690; J1100; J1885; J2175; J2405; J2704; J2710; J2795; J3010; J3490; J7030

== ENCOUNTER → 2023-10-31 08:12 | Outpatient (BNVA) | payer MEDICARE, SELFPAY | PROVIDERS: PCP Family Medicine; Visit Provider Physician Assistant | DX: Z98.890 Other specified postprocedural states (principal) | CPT/HCPCS: 99024 ==

== ENCOUNTER → 2023-11-21 08:30 | Outpatient (BNVA) | payer MEDICARE, SELFPAY | PROVIDERS: PCP Family Medicine; Visit Provider Physician Assistant | DX: Z98.890 Other specified postprocedural states (principal) | CPT/HCPCS: 99024 ==

== ENCOUNTER 2023-12-02 15:10 | Outpatient (RCR) | payer MEDICARE, SELFPAY | END 2023-12-30 23:59 | disposition home or self-care (01) | LOC: SPT 15:10 | PROVIDERS: PCP Family Medicine; Visit Provider Physician Assistant | DX: Z98.890 Other specified postprocedural states (principal) | CPT/HCPCS: 97110; 97161 ==

== ENCOUNTER 2023-12-31 06:00 | Outpatient (RCR) | payer MEDICARE, SELFPAY | END 2024-01-30 23:59 | disposition home or self-care (01) | LOC: SPT 06:00 | PROVIDERS: PCP Family Medicine; Visit Provider Physician Assistant | DX: Z98.890 Other specified postprocedural states (principal) | CPT/HCPCS: 97110 ==

== ENCOUNTER → 2024-01-09 09:04 | Outpatient (BNVA) | payer MEDICARE, SELFPAY | PROVIDERS: PCP Family Medicine; Visit Provider Physician Assistant | DX: Z98.890 Other specified postprocedural states (principal) | CPT/HCPCS: 99213 ==

== ENCOUNTER 2024-01-31 06:00 | Outpatient (RCR) | payer MEDICARE, SELFPAY | END 2024-02-29 23:59 | disposition home or self-care (01) | LOC: SPT 06:00 | PROVIDERS: PCP Family Medicine; Visit Provider Physician Assistant | DX: Z98.890 Other specified postprocedural states (principal) | CPT/HCPCS: 97110 ==

== ENCOUNTER 2024-03-01 06:00 | Outpatient (RCR) | payer MEDICARE, SELFPAY | END 2024-03-31 23:59 | disposition home or self-care (01) | LOC: SPT 06:00 | PROVIDERS: PCP Family Medicine; Visit Provider Physician Assistant | DX: Z98.890 Other specified postprocedural states (principal) | CPT/HCPCS: 97110 ==

== ENCOUNTER → 2024-04-09 10:00 | Outpatient (BNVA) | payer MEDICARE, SELFPAY | PROVIDERS: PCP Family Medicine; Visit Provider Student in an Organized Health Care Education/Training Program | DX: Z98.890 Other specified postprocedural states (principal) | CPT/HCPCS: 99213 ==

== ENCOUNTER 2024-06-04 07:48 | Outpatient (CLI) | payer MEDICARE, SELFPAY ==
--- NOTE | 2024-06-04 07:53 | MM_ITS ---
WS: [id number] BILATERAL SCREENING DIGITAL TOMOSYNTHESIS MAMMOGRAM WITH CAD HISTORY: SCREENING COMPARISON: 01/10/2023, 01/04/2022 Bilateral CC and MLO views with tomosynthesis and synthetic mammography submitted. Computer aided det ection analyzed. Breast composition: There are scattered areas of fibroglandular density. No suspicious masses, microc alcifications or architectural distortion. Benign calcification RIGHT breast. MM/MM scr BI tomosynthesis [id number] IMPRESSION: BI-RADS: 2 - Benign. FOLLOW UP: 1 Year Follow-up
== END 2024-06-04 07:49 | disposition home or self-care (01) ==
LOC: RAD 07:49
PROVIDERS: PCP Family Medicine; Visit Provider Family Medicine
DX: Z12.31 Encounter for screening mammogram for malignant neoplasm of breast (principal); R92.323 Mammographic fibroglandular density, bilateral breasts
CPT/HCPCS: 77063; 77067

== ENCOUNTER → 2024-06-10 13:46 | Outpatient (BNVA) | payer MEDICARE, SELFPAY | PROVIDERS: PCP Family Medicine; Visit Provider Dermatology | DX: D48.5 Neoplasm of uncertain behavior of skin (principal); L82.1 Other seborrheic keratosis; L57.0 Actinic keratosis; D22.0 Melanocytic nevi of lip; D22.39 Melanocytic nevi of other parts of face; Z85.828 Personal history of other malignant neoplasm of skin | CPT/HCPCS: 11102; 17000; 99203 ==

== ENCOUNTER → 2024-06-24 07:58 | Outpatient (BNVA) | payer MEDICARE, SELFPAY | PROVIDERS: PCP Family Medicine; Visit Provider Dermatology | DX: C44.311 Basal cell carcinoma of skin of nose (principal) | CPT/HCPCS: 14060; 17311 ==

== ENCOUNTER 2024-10-15 13:14 | Outpatient (CLI) | payer MEDICARE, SELFPAY ==
--- NOTE | 2024-10-15 14:16 | XR_ITS ---
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 This corresponds to a T score score of -1.1 and Z score of 0.8. Left femoral neck bone mineral density measures 0.729 (g/cm2). This corresponds to a T score of -2.2 (no units) and Z score of -0.2 (no units). LEFT forearm bone mineral density measures 0.814. This corresponds to a T score of -0.7 of and Z score of 1.8. XR/XR DEXA axial skeleton* [id number] IMPRESSION: Osteopenia lumbar spine. Osteopenia LEFT femoral neck. Normal bone mineralizati on LEFT forearm.
== END 2024-10-15 13:15 | disposition home or self-care (01) ==
LOC: RAD 13:15
PROVIDERS: PCP Family Medicine; Visit Provider Family Medicine
DX: Z78.0 Asymptomatic menopausal state (principal); M85.89 Other specified disorders of bone density and structure, multiple sites
CPT/HCPCS: 77080

== ENCOUNTER → 2025-03-16 11:02 | Outpatient (BNVA) | payer MEDICARE, SELFPAY | PROVIDERS: Visit Provider Student in an Organized Health Care Education/Training Program | DX: Z98.890 Other specified postprocedural states (principal); M75.51 Bursitis of right shoulder; M19.011 Primary osteoarthritis, right shoulder | CPT/HCPCS: 73030; 99214 ==

== ENCOUNTER 2025-05-13 06:55 | Outpatient (CLI) | payer MEDICARE, SELFPAY ==
--- NOTE | 2025-05-13 07:15 | MR_ITS ---
WS: [id number] MRI BRAIN WITHOUT CONTRAST HISTORY: meningioma f/u COMPARISON: 06/07/2021, 03/16/2018 TECHNIQUE: Diffusion imaging, multiplanar T1, T2 and FLAIR imaging obtained. No evidence for acute infarct or hemorrhage. Olguin-white matter differentiation is normal. No remote or prior infarcts. Reidentified is a postoperative changes with resection cavity along the parasagittal LEFT parietal lobe. There is associated encephalomalacia with gliosis. No significant amount of associated edema or mass effect. Postoperative LEFT parietal craniotomy is again identified and unchanged. Ventricles are slightly dilated. This is on the basis of mild atrophy. No inferior displacement of cerebellar tonsils. The sella turcica and pituitary gland are unremarkable. Dural venous sinuses and [place] demonstrate no abnormality on this unenhanced studies. Paranasal sinuses: Clear. Mastoid air cells: Very small amount of fluid in the LEFT mastoid tip. Calvarium and scalp: Prior large LEFT parietal craniotomy. MR/MR head wo con* [id number] IMPRESSION: 1. No acute infarct. Diffusion imaging is normal. 2. Stable postoperative changes involving the LEFT parietal craniotomy with re section cavity. No new area of edema or mass effect. 3. Mild cerebral atrophy.
== END 2025-05-13 06:56 | disposition home or self-care (01) ==
LOC: RAD 06:56
PROVIDERS: PCP Family Medicine; Visit Provider Family Medicine
DX: D32.0 Benign neoplasm of cerebral meninges (principal); Z98.890 Other specified postprocedural states; G31.9 Degenerative disease of nervous system, unspecified
CPT/HCPCS: 70551

== ENCOUNTER 2025-06-17 09:25 | Outpatient (CLI) | payer MEDICARE, SELFPAY ==
--- NOTE | 2025-06-17 09:28 | MM_ITS ---
WS: [id number] SCREENING DIGITAL BREAST TOMOSYNTHESIS MAMMOGRAM WITH CAD HISTORY: ANNUAL SCREEN COMPARISON: 06/04/2024, 01/10/2023, 01/04/2022 Bilateral CC and MLO with tomosynthesis and synthetic mammography submitted. Computer aided detection analyzed. Breast composition: There are scattered areas of fibroglandular density. Area of asymmetry is ill-defined in the medial RIGHT breast seen on the CC projection at a middle depth. There are a few additional benign calcifications in each breast. No distortion. No well-circumscribed mass. MM/MM scr BI tomosynthesis [id number] IMPRESSION: BI-RADS: 0 - Incomplete: Need additional imaging evaluation. FOLLOW UP: Need Additional Imaging RIGHT breast: Spot compression views (CC and MLO). True ML. Ultrasound to follo w if abnormality persists. The asymmetry in the medial RIGHT breast may correspond to a mole. Recommend ma rking any moles in the medial RIGHT breast prior to imaging.
== END 2025-06-17 09:26 | disposition home or self-care (01) ==
LOC: RAD 09:26
PROVIDERS: PCP Family Medicine; Visit Provider Family Medicine
DX: Z12.31 Encounter for screening mammogram for malignant neoplasm of breast (principal); R92.323 Mammographic fibroglandular density, bilateral breasts; N64.89 Other specified disorders of breast; R92.1 Mammographic calcification found on diagnostic imaging of breast
CPT/HCPCS: 77063; 77067

== ENCOUNTER → 2025-06-22 14:00 | Outpatient (BNVA) | payer MEDICARE, SELFPAY | PROVIDERS: PCP Family Medicine; Visit Provider Specialist | DX: G40.109 Localization-related (focal) (partial) symptomatic epilepsy and epileptic syndromes with simple partial seizures, not intractable, without status epilepticus (principal); M21.961 Unspecified acquired deformity of right lower leg; M21.962 Unspecified acquired deformity of left lower leg; E78.2 Mixed hyperlipidemia; E11.9 Type 2 diabetes mellitus without complications; M21.371 Foot drop, right foot; G60.3 Idiopathic progressive neuropathy | CPT/HCPCS: 36415; 80053; 80175; 82607; 83036; 84439; 84443; 85025; 85651; 86160; 86162; 86235; 86255; 86376; 99215 ==

== ENCOUNTER 2025-06-28 12:46 | Outpatient (CLI) | payer MEDICARE, SELFPAY ==
--- NOTE | 2025-06-28 13:00 | MM_ITS ---
WS: [id number] ADDITIONAL VIEWS RIGHT MAMMOGRAM WITH DIGITAL BREAST TOMOSYNTHESIS. HISTORY: abnormal R mammo COMPARISON: 06/17/2025, 06/04/2024, 01/04/2022, 06/12/2020 Spot compression views RIGHT breast in CC, MLO projections and true ML submitted with digital breast tomosynthesis and SM. Breast composition: There are scattered areas of fibroglandular density. The asymmetry in the medial RIGHT breast resolves with additional imaging and spot compression views. This asymmetry has been noted on prior studies including 06/12/2020 off-and-on. Not always visualized on each mammogram. This is probably due to positioning of the breast. No suspicious masses. MM/MM diag RT tomosynthesis [id number] IMPRESSION: BI-RADS: 2 - Benign. FOLLOW UP: 1 Year Follow-up Return to annual screening mammography.
== END 2025-06-28 12:47 | disposition home or self-care (01) ==
LOC: RAD 12:47
PROVIDERS: PCP Family Medicine; Visit Provider Family Medicine
DX: R92.8 Other abnormal and inconclusive findings on diagnostic imaging of breast (principal); R92.323 Mammographic fibroglandular density, bilateral breasts
CPT/HCPCS: 77061; G0279

== ENCOUNTER → 2025-06-30 08:38 | Outpatient (BNVA) | payer MEDICARE, SELFPAY | PROVIDERS: PCP Family Medicine; Visit Provider Podiatrist Foot & Ankle Surgery | DX: M79.672 Pain in left foot (principal); M77.42 Metatarsalgia, left foot; M21.371 Foot drop, right foot; G62.9 Polyneuropathy, unspecified; M25.372 Other instability, left ankle | CPT/HCPCS: 73630; 99204 ==

== ENCOUNTER 2025-07-15 06:43 | Outpatient (CLI) | payer MEDICARE, SELFPAY ==
--- NOTE | 2025-07-15 07:00 | US_ITS ---
WS: [id number] RIGHT UPPER QUADRANT ULTRASOUND HISTORY: abnormal liver enzymes COMPARISON: 11/17/2011 Liver: 13.3 cm in length. Normal size liver and echogenicity. No bile duct dilatation or mass. Portal Vein: Normal hepatopetal flow with monophasic waveform. Gallbladder: Prior cholecystectomy. CBD: 0.3 cm Pancreas: Not visualized. Right kidney: 8.9 cm in length. Atrophied RIGHT kidney. No obstruction. Mild thinning of the cortex. Aorta and IVC: Normal size IVC. Atherosclerotic changes within the aorta. There appears to be a double lumen and flow within both lumens of the aorta. I suspect this may be a small focal dissection within the infrarenal aorta. There is no aneurysm. This may also be plaque projecting into the lumen. Duodenum was dilated during the examination but peristalsis was noted and the dilatation resolved by the end of the exam. No ascites. US/US abdomen limited [id number] IMPRESSION: 1. Prior cholecystectomy. 2. No intrahepatic duct dilatation. 3. Atherosclerosis abdominal aorta with no aneurysm. There is a double lumen o f the aorta which may represent focal protruding calcified plaque or short diss ection. Recommend follow-up CT angiogram abdominal aorta.
== END 2025-07-15 06:44 | disposition home or self-care (01) ==
LOC: RAD 06:44
PROVIDERS: PCP Family Medicine; Visit Provider Family Medicine
DX: R74.8 Abnormal levels of other serum enzymes (principal); Z90.49 Acquired absence of other specified parts of digestive tract; I70.0 Atherosclerosis of aorta
CPT/HCPCS: 76705

== ENCOUNTER 2025-08-02 14:44 | Outpatient (CLI) | payer MEDICARE, SELFPAY ==
[2025-08-02] MEDS: iohexol 350 mg/mL 500 mL Btl (per mL) IV (15:13)
--- NOTE | 2025-08-02 15:15 | CT_ITS ---
WS: [id number] CT ANGIOGRAPHY abdomen HISTORY: abnormal aorta on imaging follow-up imaging from 07/15/2025. TECHNIQUE: CT angiogram is performed during IV injection. Reformation images reviewed. All CT scans at [facility] [place] use at least one of these dose optimization techniques: automated exposure control; mA and/or kV adjustment per patient size (includes targeted exams where dose is matched to clinical indication); or iterative reconstruction. CONTRAST: Omnipaque 350; 100 mL IV. DLP: 131.79 mGy.cm COMPARISON: CT 01/18/2010, ultrasound 07/15/2025 Lung bases are clear. Normal size heart. Small hiatal hernia. Abdominal aorta: Good contrast opacification of the abdominal aorta. There is no aneurysm. Scattered plaque with no dissection. The abnormality noted on the recent ultrasound is intermittently visualized calcifications and luminal thickening of the wall of the aorta. There is no ulcerated plaque and no dissection. Common iliac arteries are both patent. No periaortic collection. Normal appearance of the SMA and celiac axis. SKYLAR is patent. Prior cholecystectomy. Normal appearance of the liver and spleen. No adrenal mass. Diffuse pancreatic atrophy with no duct dilatation. IVC filter is in good position. Both kidneys are normally enhancing. Mild atrophy of the LEFT kidney with multiple areas of cortical thinning and scarring. There is no renal obstruction. No ascites or adenopathy. The visualized GI tract is not obstructed. No inflammation. There are a few diverticula in the descending colon. No destructive bone lesions. CT/CT angio abdomen [id number] IMPRESSION: 1. Abnormality noted on the recent ultrasound within the abdominal aorta corre sponds to scattered areas of plaque and intimal thickening. There is no dissect ion or aneurysm. The extent of atherosclerotic plaque has progressed since 2009 . 2. Prior cholecystectomy. 3. Normal mesenteric arteries. 4. Mild atrophy LEFT kidney with multiple areas of cortical thinning and scarr ing.
== END 2025-08-02 14:45 | disposition home or self-care (01) ==
LOC: RAD 14:45
PROVIDERS: PCP Family Medicine; Visit Provider Family Medicine
DX: Q25.40 Congenital malformation of aorta unspecified (principal); Z90.49 Acquired absence of other specified parts of digestive tract; N26.1 Atrophy of kidney (terminal); I70.0 Atherosclerosis of aorta
CPT/HCPCS: 74175

== ENCOUNTER → 2025-08-09 14:32 | Outpatient (BNVA) | payer MEDICARE, SELFPAY | PROVIDERS: PCP Family Medicine; Referring Provider Specialist; Visit Provider Specialist | DX: G62.9 Polyneuropathy, unspecified (principal); G62.89 Other specified polyneuropathies | CPT/HCPCS: 95909 ==